=== PATIENT | male | born 1995 | race Hispanic/Latino ===

== ENCOUNTER 2019-02-27 09:51 | Emergency (ER) | payer MEDICAID, OTHER ==
[2019-02-27 11:49] LABS: Bilirubin Negative (Negative); Blood, Urine Negative (Negative); Clarity CLEAR (Clear); Glucose, Urine (Dipstick) Negative (Negative); Leukocyte Negative (Negative); Nitrite Negative (Negative); Protein, Urine (Dipstick) Negative (Neg-Trace); Specific Gravity, Urine 1.005 (1.002-1.036); Urobilinogen 0.2 mg/dL (0.2-1.0)
--- NOTE | 2019-02-27 13:48 | ULT ---
Exam: Testicular ultrasound HISTORY: Testicular pain COMPARISON: None TECHNIQUE: Sagittal and transverse imaging of the left and right hemiscrotum are performed. Testicula r Doppler is performed with grayscale, color-flow, Doppler imaging and spectral waveform analysis. FINDINGS: Right hemiscrotum: Testicle: Extensive punctate echogenic foci compatible with testicular microlithiasis. Right testicle measurements: 2.4 x 3.9 x 2.4 cm Right epididymis: Normal echotexture. Right epididymis measurements: 1.4 x 1.0 x 0.7 cm Hydrocele: None Left hemiscrotum: Left testicle: Extensive punctate echogenic foci compatible with testicular microlithiasis Left testicle measurements: 2.6 x 2.5 x 3.4 cm Left epididymis: Normal echotexture. Left epididymis measurements:1.6 x 0.9 x 1.0 cm Hydrocele: None In the region of concern, there appear to be slightly prominent vessels, along the inferior aspect th e left scrotum. No evidence of increased flow upon Valsalva. Testicular Doppler: There is symmetric vascular flow to the left and right testicle. . IMPRESSION: 1. Bilateral testicular microlithiasis. Nonemergent urology consultation is recommended. No signific ant hydrocele. 2. Small vessels, the region of concern. Significance is uncertain given lack of increased flow upon Valsalva.
== END 2019-02-27 14:20 | disposition home or self-care (01) ==
LOC: ERS 09:51
DX: N50.89 Other specified disorders of the male genital organs (principal); F17.210 Nicotine dependence, cigarettes, uncomplicated
CPT/HCPCS: 76870; 81003; 93976